=== PATIENT | female | born 1980 | race Caucasian/White ===

== ENCOUNTER 2016-05-15 10:20 | Inpatient (IN) | payer MEDICAID ==
[2016-05-15] MEDS ORDERED: OXYTOCIN 10 UNITS/ML VIAL ONE (11:10)
[2016-05-15] MEDS ORDERED: PUMP TUBING ONE (11:10)
[2016-05-15] MEDS ORDERED: LIDOCAINE 1% (PRES FREE) 30 ML VIAL ONE (11:10)
[2016-05-15] MEDS ORDERED: LIDOCAINE Viscous 2% 15 ML UDCUP ONE (11:10)
[2016-05-15] MEDS ORDERED: MINERAL OIL 25 ML BOT ONE (11:10)
[2016-05-15] MEDS ORDERED: OXYTOCIN IN LR 500 ML IV ONE ×3 (11:11→20:42)
[2016-05-15] MEDS ORDERED: LACTATED RINGERS 1,000 ML ONE (11:25)
[2016-05-15] MEDS ORDERED: IV START KIT ONE (11:25)
[2016-05-15] MEDS ORDERED: OXYTOCIN IN LR 500 ML IV PRN (13:15)
[2016-05-15] MEDS ORDERED: LACTATED RINGERS 1,000 ML IV SCH (13:15)
[2016-05-15] MEDS ORDERED: LACTATED RINGERS 1,000 ML IV PRN (15:29)
[2016-05-15 15:36] VITALS: BMI 37.5
[2016-05-15] MEDS ORDERED: FENTANYL 100 MCG/2 ML VIAL IV ONE (19:22)
[2016-05-15] MEDS ORDERED: FENTANYL 100 MCG/2 ML VIAL ONE (19:22)
[2016-05-15 20:22] LABS: HEMATOCRIT 37.2 % (37.0-47.0); HEMOGLOBIN 12.6 gm/l (12.0-16.0); MEAN CORPUSCULAR HEMOGLOBIN 31.5 pg (27.0-31.0); MEAN CORPUSCULAR HGB CONC 33.9 g/dl (33.0-37.0); MEAN PLATELET VOLUME 11.3 fl (7.4-10.4); PLATELET COUNT 148 K/mm3 (130-400); RED CELL DISTRIBUTION WIDTH 14.5 % (11.5-14.5)
[2016-05-15 20:23] LABS: BASO % 0.2 % (0.2-1.0); EOS % 0.3 % (0.9-2.9); IMM NEUT% 0.2 % (0-1); LYMPH # 1.3 (1.0-4.8); LYMPH % 12.7 % (15-45); MONO # 0.5 (0.0-0.8); MONO % 4.6 % (4-12)
--- NOTE | 2016-05-15 21:10 | PDOC36 ---
Provider Note Subject: CNM shift change note Note: NOTE: Late entry due to involvement in pt care. S: Pt reports increasing pain with contractions. Change of shift report with patient -patient never stopped conversation to breath with contractions nor show signs of discomfort. O: FHR 150 with accelerations, no decels, moderate variability, category 1 Contractions q 4, 40 sec, moderate A: Not in active labor yet P: Anticipate .
[2016-05-15] MEDS ORDERED: FLU VACC 2016-17 (36MO-64Y)/PF 60 MCG/0.5 ML SYRINGE IM V ONE (21:12)
[2016-05-15] MEDS ORDERED: BENZOCAINE/MENTHOL 60 APPLIC/BOT TP PRN (21:15)
[2016-05-15] MEDS ORDERED: DOCUSATE SODIUM 100 MG CAPSULE PO PRN (21:15)
[2016-05-15] MEDS ORDERED: HYDROCODONE/ACETAMINOPHEN 5/325MG TABLET PO PRN (21:15)
[2016-05-15] MEDS ORDERED: LANOLIN 50 APPLIC/7G TUBE TP PRN (21:15)
[2016-05-15] MEDS ORDERED: ACETAMINOPHEN 325 MG TABLET PO PRN (21:15)
[2016-05-15] MEDS ORDERED: CALCIUM CARBONATE 500 MG TAB.CHEW PO PRN (21:15)
[2016-05-16] MEDS: IBUPROFEN 800 MG TABLET PO SCH ×3 (00:04→18:55)
--- NOTE | 2016-05-16 12:15 | PCMDEL ---
Delivery Note - Labor 1st stage (hr/min):: 1 hr 23 min 2nd stage (hr/min):: 0 hr 04 min 3rd stage (hr/min):: 0 hr 06 min Total (hr/min):: 1 hr 33 min - Delivery Delivery (Date): 05/15/16 Delivery (Time): 20:27 Infant Gender: Male Weight: 8 lb 0.75 oz Length: 1 ft 9 in Presentation: Cephalic Position: OA Umbilical Cord: 3 Vessel Delayed Cord Clamping:: > 3 min 1 Minute Total: 9 5 Minute Total: 9 Placenta:: bautista, intact and complete EBL:: 100 Perineum:: intact Suture:: none Anesthesia/Meds:: none Length ROM:: 3 hours Comments:: Well controlled on hands and knees over intact perineum. Labor induced for diet controlled GDM and US showing macrosmia. Induction via pitocin, had SROM with significant increase in contraction quality and frequency. Baby given directly to mother after for skin to skin. Cord clamped after 3 minutes, cut by Rakan (father of baby). Active management of third stage of labor started. Spontaneous delivery hua placenta, intact and complete. Minimal blood loss. Intact. Excellent bonding.
--- NOTE | 2016-05-16 12:20 | PDOC44 ---
- Subjective Day: 1 Reports Pain Tolerable, Reports , Reports Lochia Light (Worried that breasts are not full so baby isn't getting enough.) - Objective Temp Pulse Resp BP Pulse Ox 98.4 F 64 16 94/52 05/16/16 08:00 05/16/16 08:00 05/16/16 08:00 05/16/16 08:00 Lab Results 05/15/16 11:40 WBC 10.5 RBC 4.00 L Hgb 12.6 Hct 37.2 Plt Count 148 05/15/16 11:40 MCH 31.5 H Neut % (Auto) 82.0 H Lymph % (Auto) 12.7 L Eosinophils % 0.3 L Current Medications Generic Name Dose Route Start Last Admin Trade Name Freq PRN Reason Stop Dose Admin Acetaminophen 325 - 650 mg 05/15/16 21:15 Tylenol PO Q4H PRN Pain (Mild) Acetaminophen/Hydrocodone Bitart 1 - 2 tab 05/15/16 21:15 [place] 5/325 PO Q4H PRN Pain (Moderate) Benzocaine/Menthol 1 applic 05/15/16 21:15 Dermoplast TP PRN PRN Patient Comfort Calcium Carbonate/Glycine 500 - 1,000 mg 05/15/16 21:15 Tums PO BID PRN Indigestion Docusate Sodium 100 mg 05/15/16 21:15 Colace PO DAILY PRN Comfort Emollient Ointment 1 applic 05/15/16 21:15 [id number] TP PRN PRN sore nipples Ibuprofen 800 mg 05/15/16 21:15 05/16/16 06:16 Motrin PO 800 mg Q6H QASIM Administration Sodium Chloride 10 ml 05/15/16 21:15 05/15/16 22:03 Normal Saline 10ml Flush IV 10 ml PRN PRN Administration IV Flush - Physical Exam General: Afebrile Psych/Mental Status: Mood/Affect Appropriate, Bonding Well Neurological: Grossly Intact Breast: Soft, Skin intact, Nipples Intact Fundus: Firm, Midline, Below Umbilicus Genitourinary: Normal Female Genitalia Lochia: Light Rectal Exam: Deferred - Problems:Assessment/Plan (1) care and examination of lactating mother Status: AcuteAssessment/Plan: A: Stable PP day 1 P: Discharge handout reviewed. Discussed colostrum as perfect in quality and amount for baby's stomch in first days of life. Disposition: Stable, Anticipate DC Home Tomorrow
[2016-05-17] MEDS: IBUPROFEN 800 MG TABLET PO SCH ×2 (02:20→08:33)
[2016-05-17 08:21] VITALS: BP 105/56
--- NOTE | 2016-05-17 09:21 | PDOC39B ---
Hospital Course: ADMIT DATE: 05/15/16 DISCHARGE DATE: 05/17/16 ADMISSION DIAGNOSES: Active Labor PROCEDURES: HISTORY OF PRESENT ILLNESS: 35 year old [facility] at 40 weeks 3 days presenting with active labor. HOSPITAL COURSE: The patient had a well controlled on hands and knees over intact perineum. Labor induced for diet controlled GDM and US showing macrosmia. Induction via pitocin, had SROM with significant increase in contraction quality and frequency. Baby given directly to mother after for skin to skin. Cord clamped after 3 minutes, cut by Rakan (father of baby) . Active management of third stage of labor started. Spontaneous delivery hua placenta, intact and complete. Minimal blood loss. Intact. Excellent bonding. recovery was uncomplicated. She is up ad ajay to void without issue, without issue, and her pain is well controlled with ibuprofen and tyelnol. She reports her bleeding is decreasing. Plans to follow up with [facility] for care. By day of discharge the patient is stable, well and ready to go home. - Physical Exam Vital Signs: Temp Pulse Resp BP Pulse Ox 98.2 F 64 16 105/56 05/17/16 08:19 05/17/16 08:19 05/17/16 08:19 05/17/16 08:19 General: Afebrile Psych/Mental Status: Mood/Affect Appropriate, Judgment/Insight Intact, Bonding Well Neurological: Alert, Oriented x 4, Normal Speech Lungs: Clear to Auscultation Bilaterally Cardiovascular: Regular Rate and Rhythm Breast: Soft, Skin intact, Nipples Intact Fundus: Firm, Midline, Below Umbilicus Genitourinary: Normal Female Genitalia Extremities: Full ROM Skin: Normal Color, Warm, Dry, Intact - Discharge Diagnosis (1) (normal spontaneous vaginal delivery) Status: AcuteAssessment/Plan: A: PPD #2 s/p exclusive stable and appropriate for discharge P: Reviewed warning s/s and when to call provider handout reviewed Plans RTC with Kristen Gonsalez for care, will call for appointment in 2wks Discharge to home with baby in stable condition - Discharge Plan Condition: Stable Disposition: Home Instruction Forms: Vaginal Discharge Instructions Additional Instructions: Midwifery 'After the ' handout given to patient. Discharge Medications: Por dolor: David ibuprofina cada 6 horas. Lo zak es 800mg. David Tylenol cada 6 horas. Lo zak es 650mg. David los dos medicinas separadas por 3 horas.
== END 2016-05-17 10:58 | disposition home or self-care (01) | DRG 775 ==
LOC: FBC 10:20
PROVIDERS: ADMIT Advanced Practice Midwife; ATTEND Advanced Practice Midwife
PROC: 10E0XZZ Delivery of Products of Conception, External Approach (ICD-10-PCS; principal; 2016-05-15)
PROC: 3E033VJ Introduction of Other Hormone into Peripheral Vein, Percutaneous Approach (ICD-10-PCS; 2016-05-15)
PROC: 3E0234Z Introduction of Serum, Toxoid and Vaccine into Muscle, Percutaneous Approach (ICD-10-PCS; 2016-05-17)
DX: O24.420 Gestational diabetes mellitus in childbirth, diet controlled (principal); O36.63X0 Maternal care for excessive fetal growth, third trimester, not applicable or unspecified; Z37.0 Single live birth; Z3A.40 40 weeks gestation of pregnancy; Z23 Encounter for immunization